=== PATIENT | female | born 1975 | race Caucasian/White ===

== ENCOUNTER 2017-01-28 16:50 | Emergency (ER) | payer OTHER ==
--- NOTE | ~2017-01-28 | EKG ---
PATIENT: LUKAS JENKINS UNIT #: [id number] Ventricular Rate: 102 BPM Atrial Rate: 102 BPM P-R Interval: 122 ms QRS Duration: 76 ms Q-T Interval: 340 ms QTC Calculation(Bezet): 443 ms P [place]: 70 degrees Calculated R [place]: 66 degrees Calculated T [place]: 6 degrees Diagnosis Line: Sinus tachycardia Diagnosis Line: Otherwise normal ECG Diagnosis Line: Diagnosis Line: Confirmed by ALCON PENN MD ([id number]) on Diagnosis Line: 01/29/2017 8:54:39 AM INTERPRETING MD: FILI SAHU
--- NOTE | ~2017-01-28 | CR72 ---
[facility] A Service of [facility] RADIOLOGY TEXT RESULTS PATIENT: LUKAS JENKINS LOCATION: [facility] : 79 UNIT #: [id number] AGE: [address]: Lei Begum MD SEX: F ORDER DR: [id number] [facility] [address] [place], [place] [address] [id number] E MR#: [id number] Acc #: [id number] NAME: LUKAS JENKINS : 1975 SEX: F STUDY DATE/TIME: 01/28/2017 19:36 UNIT: [facility] ROOM: STUDY DESCRIPTION: CR Chest Single View Portable Attending Physician: Lei Begum M.D. Ordering Physician: Lei Begum M.D. Primary Care Physician: Ish Callejas M.D. MEDICAL IMAGING REPORT This report is preliminary unless electronic signature is present EXAM Portable chest x-ray. DATE OF EXAM 01/28/2017 HISTORY Short of air. Feet swelling. Short of air 2 days duration. Smoker 27 years. COMPARISON 03/17/2015. FINDINGS Heart and mediastinum normal in size and contour. Lungs hyperinflated. This may be a reflection of underlying COPD in this patient with history of long-term tobacco usage. Small focus of minimal patchy and linear densities at the left lung base just above the diaphragm may represent an area of atelectasis or very mild localized pneumonitis. There is no dense airspace disease, pleural fluid or pneumothorax, and no suspicious nodule. Bony structures are unremarkable. Dictated by... Jules Fields M.D. THIS IS AN ELECTRONICALLY VERIFIED REPORT Jules Fields M.D. at 01/29/2017 7:58 PM DONYA/[email or web address] [facility] A Service [facility] RADIOLOGY TEXT RESULTS PATIENT: LUKAS JENKINS LOCATION: [facility] : 79 UNIT #: [id number] AGE: [address]: Lei Begum MD SEX: F ORDER DR: TD: 01/28/2017 21:15 JOB #: [id number] MEDICAL IMAGING REPORT Page 1 of 1 COPY
[~2017-01-28 16:50] MED LIST: ADVAIR 100-501 EAC1 IH; ADVAIR 250-501 EAC1 IH; ALBUTEROL17 GM INH; ALPRAZOLAM PO; DIAZEPAM PO; ELIMITE60 GM TOP; HUMIBID-LA600 MG PO; IBUPROFEN PO; LIPITOR80 MG PO; LORTAB 101 TAB 10/5 DOB; MEDROL DOSEPAK4 MG PO; MORPHINE SULFAT15 M3 PO; NAPROXEN PO; NICOTINE TRANSD21 MG EXT; NO MEDICATIONS; NORCO 10-325 TA1 TAB PO; NORTRIPTYLINE H10 MG PO; OXAPROZIN600 MG PO; PERCOCET 10/3251 TAB PO; PHENERGAN25 MG PO; PREDNISONE PO; PRENATAL MULITV1 TAB; PRENATAL VITAMI1 TA3 PO; PRILOSEC; PRILOSEC20 M1 PO; PRILOSEC20 MG PO; PROVENTIL INH0.5 ML HHN; SARAFEM20 MG PO; SINGULAIR PO; SLEEP MED; TIZANIDINE HCL4 M1 PO; ULTRAM PO; VICODIN 5/1 TAB 5/50 PO; VITAMIN D50000 UNIT PO; VOLTAREN25 MG PO; ZITHROMAX PO
[2017-01-28 19:30] LABS: BASOPHIL# 0.1 X10e3 (0-0.3); BASOPHIL% 0.9 % (0-2.5); EOSINOPHIL# 0.1 X10e3 (0-0.7); EOSINOPHIL% 1.5 % (0.0-7.0); HEMATOCRIT 43.6 % (35.0-45.0); HEMOGLOBIN 14.6 gm/dL (12.0-16.0); LYMPHOCYTE% 24.5 % (17.0-45.0); MEAN CELL VOLUME 87.7 FL (83-96); MEAN CORPUSCULAR HEMOGLOBIN 29.3 PG (28-34); MEAN CORPUSCULAR HGB CONC 33.4 g/dL (30-36); MEAN PLATELET VOLUME 6.3 FL (6.5-11.5); MONOCYTE# 0.4 X10e3 (0-1.0); MONOCYTE% 5.2 % (3.0-12.0); NEUTROPHIL# 5.5 X10e3 (1.5-7.1); NEUTROPHIL% 67.9 % (40-75); PLATELET COUNT 321 X10e3 (140-420); RED BLOOD COUNT 4.97 X10e (3.90-5.30); RED CELL DISTRIBUTION WIDTH 15.2 % (11.0-15.5); WHITE BLOOD COUNT 8.2 X10e3 (4.0-10.5)
[2017-01-28 19:33] LABS: DIFF IND NO
[2017-01-28 19:51] LABS: BUN/CREATININE RATIO 8.57; CALCIUM SERUM 8.9 mg/dL (8.4-10.2); CREATININE SERUM 0.7 mg/dL (0.6-1.4); GLOM FILT RATE Estimated 108.4 mL/min (>60); POTASSIUM 4.2 mmol/L (3.5-5.1)
[2017-01-28 20:21] LABS: POC - TROPONIN <0.05 ng/mL (<=0.05)
== END 2017-01-28 20:35 | disposition home or self-care (01) ==
LOC: CED 16:50
PROVIDERS: Emergency Medicine
DX: R60.0 Localized edema (principal); K08.89 Other specified disorders of teeth and supporting structures; F17.200 Nicotine dependence, unspecified, uncomplicated; J45.909 Unspecified asthma, uncomplicated; K21.9 Gastro-esophageal reflux disease without esophagitis
CPT/HCPCS: 71010; 80048; 82553; 84484; 84703; 85025; 93005; 99283